=== PATIENT | male | born 1990 | race Caucasian/White ===

== ENCOUNTER 2018-10-19 21:17 | Emergency (ER) | payer OTHER, SELFPAY ==
[2018-10-19] MEDS ORDERED: NA CHLORIDE 0.9% 2,000 ML ONE (21:53)
[2018-10-19] MEDS ORDERED: IBUPROFEN 400 MG TAB ONE (22:05)
--- NOTE | 2018-10-19 22:23 | ER ---
Nurse's Notes [facility] Name: Rodger Watson Age: 28 yrs Sex: Male : 1990 Arrival Date: 10/19/2018 Time: 21:21 Bed 26 Private MD: Diagnosis: Influenza due to other identified influenza virus-influenza B;Streptococcal pharyngitis Presentation: 10/19 21:24 Presenting complaint: Patient states: fever, cough, sore throat since Sunday, taken la1 tylenol at 2000. Transition of care: patient was not received from another setting of care. Onset of symptoms was October 19, 2018. Risk Assessment: Do you want to hurt yourself or someone else? Patient reports no desire to harm self or others. Initial Sepsis Screen: Does the patient meet any 2 criteria? Temp <36.0*C (96.8*F)) or > 38.3*C (100.9*F). HR > 90 bpm. Yes Does the patient have a suspected source of infection? Yes: Productive cough/pneumonia. Care prior to arrival: None. 21:24 Method Of Arrival: Ambulatory la1 21:24 Acuity: KINZA 2 la1 Historical: - Allergies: 21:26 No Known Allergies; la1 - PMHx: 21:26 GERD; la1 - Immunization history:: Adult Immunizations up to date. - Social history:: Smoking status: Patient/guardian denies using tobacco. - Ebola Screening: : No symptoms or risks identified at this time. Screenin:58 Abuse screen: Denies threats or abuse. Denies injuries from another. Nutritional mg2 screening: No deficits noted. Tuberculosis screening: No symptoms or risk factors identified. Fall Risk None identified. Assessment: 21:56 General: Appears in no apparent distress. comfortable, Behavior is calm, cooperative. mg2 Pain: Complains of pain in throat Pain does not radiate. Pain currently is 4 out of 10 on a pain scale. Quality of pain is described as aching, Pain began gradually, 1 day ago. Is intermittent. Neuro: Level of Consciousness is awake, alert, obeys commands, Oriented to person, place, time, situation. Cardiovascular: Capillary refill < 3 seconds Patient's skin is warm and dry. Respiratory: Reports cough that is non-productive, nasal congestion Airway is patent Respiratory effort is even, unlabored, Respiratory pattern is regular, symmetrical. GI: No signs and/or symptoms were reported involving the gastrointestinal system. : No signs and/or symptoms were reported regarding the genitourinary system. EENT: Reports sore throat. Derm: Skin is intact, is healthy with good turgor, Skin is pink, warm \T\ dry. normal. Musculoskeletal: Circulation, motion, and sensation intact. Capillary refill < 3 seconds. Vital Signs: 21:25 BP 111 / 77; Pulse 115; Resp 18; Temp 101.7; Pulse Ox 100% on R/A; Weight 77.11 kg; la1 Height 5 ft. 10 in. (177.80 cm); Pain 7/10; 22:39 BP 110 / 70; Pulse 90; Resp 18; Temp 98.7(O); Pulse Ox 100% on R/A; Pain 0/10; mg2 21:25 Body Mass Index 24.39 (77.11 kg, 177.80 cm) la1 ED Course: 21:21 Patient arrived in ED. mr 21:25 Triage completed. la1 21:26 Arm band placed on left wrist. la1 21:27 Clarence Porter PA is PHCP. cp 21:27 Manny Gillespie MD is Attending Physician. cp 21:27 Edmund Murray, KYRA is Primary Nurse. mg2 21:39 Chest Single View XRAY In Process Unspecified. EDMS 21:58 Patient has correct armband on for positive identification. Door closed. mg2 21:58 No provider procedures requiring assistance completed. Patient did not have IV access mg2 during this emergency room visit. 22:22 XRAY Chest Pa And Lat (2 Views) In Process Unspecified. EDMS Administered Medications: 21:54 Drug: Ibuprofen 800 mg Route: PO; mg2 22:31 Follow up: Response: No adverse reaction; Temperature is decreased mg2 21:59 Not Given (Physician Discretion): NS 0.9% (30 ml/kg) 30 ml/kg IV at bolus once; Sepsis mg2 Protocol 22:31 Drug: Tamiflu 75 mg Route: PO; mg2 22:31 Follow up: Response: No adverse reaction; Medication administered at discharge. mg2 22:31 Drug: Augmentin 875 mg Route: PO; mg2 22:31 Follow up: Response: No adverse reaction; Medication administered at discharge. mg2 Outcome: 22:22 Discharge ordered by . cp 22:39 Patient left the ED. mg2 22:39 Discharged to home ambulatory. mg2 22:39 Condition: stable 22:39 Discharge instructions given to patient, Instructed on discharge instructions, follow mg2 up and referral plans. medication usage, Demonstrated understanding of instructions, follow-up care, medications, Prescriptions given X 3. Signatures: Dispatcher [employer] Surekha ChildsTu cochran RN RN la1 Clarence Porter PA PA cp Gardose, Michele, RN RN mg2 Corrections: (The following items were deleted from the chart) 21:26 21:25 BP 111 / 7; Pulse 115bpm; Resp 18bpm; Pulse Ox 100% RA; Temp 101.7F; 77.11 kg; la1 Height 5 ft. 10 in.; BMI: 24.3; Pain 7/10; la1
--- NOTE | 2018-10-19 22:23 | EDPHYS ---
Physician Documentation [facility] Name: Rodger Watson Age: 28 yrs Sex: Male : 1990 Arrival Date: 10/19/2018 Time: 21:21 Bed 26 Private MD: ED Physician Manny iGllespie HPI: 10/19 21:35 This 28 yrs old Male presents to ER via Ambulatory with complaints of Fever, cp Cough. 21:35 The patient reports fever, with an emergency department temperature of 101.7 degrees cp Fahrenheit. 21:35 Onset: The symptoms/episode began/occurred yesterday. Associated signs and symptoms: cp Pertinent positives: cough, sore throat, Pertinent negatives: diarrhea, earache, headache, skin rash, vomiting, neck stiffness. Severity of symptoms: in the emergency department the symptoms are unchanged despite home interventions. Historical: - Allergies: 21:26 No Known Allergies; la1 - PMHx: 21:26 GERD; la1 - Immunization history:: Adult Immunizations up to date. - Social history:: Smoking status: Patient/guardian denies using tobacco. - Ebola Screening: : No symptoms or risks identified at this time. ROS: 21:40 Constitutional: Positive for body aches, fever, Negative for poor PO intake. cp 21:40 Eyes: Negative for injury, pain, redness, and discharge. cp 21:40 ENT: Positive for sore throat, Negative for drainage from ear(s), ear pain, difficulty cp swallowing, difficulty handling secretions, hoarseness. 21:40 Neck: Negative for pain with movement, pain at rest, stiffness. 21:40 Cardiovascular: Negative for chest pain. 21:40 Respiratory: Positive for cough, Negative for shortness of breath, wheezing. 21:40 Abdomen/GI: Negative for abdominal pain, nausea, vomiting, and diarrhea. 21:40 Skin: Negative for rash. 21:40 Neuro: Negative for altered mental status, headache. 21:40 All other systems are negative. Exam: 21:45 Constitutional: The patient appears in no acute distress, alert, awake, non-toxic, well cp developed, well nourished, febrile. 21:45 Head/Face: Normocephalic, atraumatic. cp 21:45 Eyes: Periorbital structures: appear normal, Conjunctiva: normal, no exudate, no injection, Sclera: no appreciated abnormality, Lids and lashes: appear normal, bilaterally. 21:45 ENT: External ear(s): are unremarkable, Ear canal(s): are normal, clear, TM's: bulging, is not appreciated, bilaterally, dullness, bilaterally, erythema, is not appreciated, bilaterally, Nose: is normal, Mouth: Lips: moist, Oral mucosa: moist, Posterior pharynx: Airway: no evidence of obstruction, patent, Tonsils: bilaterally enlarged, with erythema, no exudate, Uvula: midline, erythema, that is moderate, exudate, is not appreciated, Voice: is normal. 21:45 Neck: ROM/movement: is normal, is supple, no meningismus, no nuchal rigidity. 21:45 Chest/axilla: Inspection: normal, Palpation: is normal, no crepitus, no tenderness. 21:45 Cardiovascular: Rate: tachycardic, Rhythm: regular. 21:45 Respiratory: the patient does not display signs of respiratory distress, Respirations: normal, no use of accessory muscles, no retractions, no splinting, no tachypnea, labored breathing, is not present, Breath sounds: are clear throughout, no decreased breath sounds, no stridor, no wheezing. 21:45 Abdomen/GI: Inspection: abdomen appears normal, Palpation: abdomen is soft and non-tender, in all quadrants. 21:45 Skin: no rash present. 21:45 Neuro: Orientation: to person, place \T\ time. Mentation: is normal, Cerebellar function: is grossly normal, Motor: moves all fours, strength is normal, Gait: is steady. Vital Signs: 21:25 BP 111 / 77; Pulse 115; Resp 18; Temp 101.7; Pulse Ox 100% on R/A; Weight 77.11 kg; la1 Height 5 ft. 10 in. (177.80 cm); Pain 7/10; 22:39 BP 110 / 70; Pulse 90; Resp 18; Temp 98.7(O); Pulse Ox 100% on R/A; Pain 0/10; mg2 21:25 Body Mass Index 24.39 (77.11 kg, 177.80 cm) la1 MDM: 21:27 Patient medically screened. cp 21:30 Differential diagnosis: URI, bronchitis, pneumonia gastroenteritis, meningitis. cp 21:45 ED course: VS noted. Will not draw blood work according to sepsis protocol as patient cp is otherwise healthy. 22:20 Data reviewed: vital signs, nurses notes, lab test result(s), radiologic studies, plain cp films, chest xray negative for focal infiltrates, and as a result, I will discharge patient. 22:20 Counseling: I had a detailed discussion with the patient and/or guardian regarding: the cp historical points, exam findings, and any diagnostic results supporting the discharge/admit diagnosis, lab results, radiology results, to return to the emergency department if symptoms worsen or persist or if there are any questions or concerns that arise at home. Response to treatment: the patient's symptoms have markedly improved after treatment. 10/19 21:28 Order name: Chest Single View XRAY mg2 10/19 21:45 Order name: Influenza Screen (a \T\ B); Complete Time: 22:17 cp 10/19 22:17 Interpretation: Normal except: FLUB FLU B ----- \T\nbsp; \T\nbsp; \T\nbsp; \T\nbsp; \T\nbsp; cp \T\nbsp; \T\nbsp; \T\nbsp; \T\nbsp; POSITIVE for FLU B protein antigen. 10/19 21:45 Order name: Strep; Complete Time: 22:17 cp 10/19 21:45 Order name: XRAY Chest Pa And Lat (2 Views) cp Administered Medications: 21:54 Drug: Ibuprofen 800 mg Route: PO; mg2 22:31 Follow up: Response: No adverse reaction; Temperature is decreased mg2 21:59 Not Given (Physician Discretion): NS 0.9% (30 ml/kg) 30 ml/kg IV at bolus once; Sepsis mg2 Protocol 22:31 Drug: Tamiflu 75 mg Route: PO; mg2 22:31 Follow up: Response: No adverse reaction; Medication administered at discharge. mg2 22:31 Drug: Augmentin 875 mg Route: PO; mg2 22:31 Follow up: Response: No adverse reaction; Medication administered at discharge. mg2 Disposition: 10/20 04:12 Co-signature as Attending Physician, Manny Gillespie MD I agree with the assessment and kdr plan of care. Disposition: 10/19/18 22:22 Discharged to Home. Impression: Influenza due to other identified influenza virus - influenza B, Streptococcal pharyngitis. - Condition is Stable. - Discharge Instructions: Influenza, Adult, Strep Throat. - Prescriptions for Amoxicillin 875 mg Oral Tablet - take 1 tablet by ORAL route every 12 hours for 10 days; 20 tablet. Ibuprofen 800 mg Oral Tablet - take 1 tablet by ORAL route every 8 hours As needed take with food; 30 tablet. Tamiflu 45 mg Oral Capsule - take 1 capsule by ORAL route every 12 hours for 5 days; 10 capsule. - Medication Reconciliation Form, Thank You Letter, Antibiotic Education, Prescription Opioid Use, Work release form form. - Follow up: Private Physician; When: 2 - 3 days; Reason: Worsening of condition. - Problem is new. - Symptoms have improved. Signatures: Dispatcher [employer] [facility] Manny Gillespie MD MD kdr Tu Mcginnis RN RN la1 Clarence Porter PA PA cp Gardose, Michele, RN RN mg2 Corrections: (The following items were deleted from the chart) 10/19 21:51 21:29 Basic Metabolic Panel ordered. [facility] 21:51 21:29 Blood Culture ordered. [facility] 21:51 21:29 CBC with Automated Diff ordered. [facility] 21:51 21:29 CKMB Creatine Kinase MB ordered. [facility] 21:51 21:30 Creatine Phosphokinase ordered. [facility] 21:51 21:30 Liver (Hepatic) Function ordered. [facility] 21:51 21:30 Lipase ordered. [facility] 21:51 21:30 Procalcitonin ordered. [facility] 21:51 21:30 Protime (+INR) ordered. [facility] 21:51 21:30 PTT, ACTIVATED+COAG.LAB.BRZ ordered. [facility] 21:51 21:30 TROPONIN (EMERG DEPT USE ONLY)+C.LAB.BRZ ordered. [facility] 21:51 21:30 UA MICROSCOPIC+U.LAB.BRZ ordered. [facility] 21:52 21:30 Lactate ordered. [facility] 21:59 21:28 Accucheck ordered. mg2 mg2 22:00 21:28 Cardiac monitoring ordered. mg2 mg2 22:00 21:28 EKG - Nurse/Tech ordered. mg2 mg2 22:00 21:28 IV Saline Lock - Large Bore ordered. mg2 mg2 22:00 21:28 Labs collected and sent ordered. mg2 mg2 22: 21:28 Oxygen Per Protocol ordered. mg2 mg2 22: 21:28 O2 Sat Monitoring ordered. mg2 mg2 22:08 21:28 Urine Dipstick-Ancillary ordered. mg2 cp 22:39 22:22 10/19/2018 22:22 Discharged to Home. Impression: Influenza due to other mg2 identified influenza virus - influenza B; Streptococcal pharyngitis. Condition is Stable. Forms are Medication Reconciliation Form, Thank You Letter, Antibiotic Education, Prescription Opioid Use. Follow up: Private Physician; When: 2 - 3 days; Reason: Worsening of condition. Problem is new. Symptoms have improved. cp
[2018-10-19] MEDS ORDERED: AMOX/K CLAV 875 MG TAB ONE (22:38)
[2018-10-19] MEDS ORDERED: OSELTAMIVIR 75 MG CAP ONE (22:38)
--- NOTE | 2018-10-20 07:47 | RAD REPORT ---
EXAM DESCRIPTION: RAD - Chest Single View - 10/19/2018 9:39 pm CLINICAL HISTORY: Cough, sepsis COMPARISON: June 2014 TECHNIQUE: AP portable chest image was obtained 2134 hours . FINDINGS: Lungs are clear. Heart and vasculature are normal. No measurable pleural effusion and no p neumothorax. No acute bony abnormality seen. No acute aortic findings suspected. IMPRESSION: No acute cardiopulmonary process.
--- NOTE | 2018-10-20 07:51 | RAD REPORT ---
EXAM DESCRIPTION: RAD - Chest Pa And Lat (2 Views) - 10/19/2018 10:21 pm CLINICAL HISTORY: Cough, fever COMPARISON: Portable chest same date TECHNIQUE: PA and lateral views of the chest were obtained. FINDINGS: The lungs are clear. Heart size is normal and central vasculature is within normal limit s. No pleural effusion or pneumothorax seen. No acute bony finding noted. No aortic abnormality. IMPRESSION: No acute cardiopulmonary process. No new finding.
== END 2018-10-19 22:39 | disposition home or self-care (01) ==
LOC: ER 21:17
DX: J10.1 Influenza due to other identified influenza virus with other respiratory manifestations (principal); J02.0 Streptococcal pharyngitis
CPT/HCPCS: 71045; 71046; 87081; 87804; 99283; J7030

== ENCOUNTER 2019-06-07 01:23 | Emergency (ER) | payer OTHER ==
--- OUTSIDE RECORDS SUMMARY | 2019-06-07 01:25 | XMS REPORT ---
:1990 [facility] Address [address] [place] [address] Dr. Martinez [address] [place] [id number] Care Team Providers Name Role Phone Unavailable Unavailable Unavailable Problems This patient has no known problems. Allergies, Adverse Reactions, Alerts This patient has no known allergies or adverse reactions. Medications This patient has no known medications.
--- NOTE | 2019-06-07 02:54 | EDPHYS ---
Physician Documentation [facility] Name: Rodger Watson Age: 29 yrs Sex: Male : 1990 Arrival Date: 06/07/2019 Time: 01:26 Bed 13 Private MD: Heidy Chris R ED Physician Mark Mcgregor HPI: 06/07 01:58 This 29 yrs old Male presents to ER via Unassigned with complaints of Cough, snw Sore Throat, Headache, Diarrhea, Dizziness. 01:58 The patient or guardian reports flu symptoms, low-grade fever, myalgias, no appetite. snw Onset: The symptoms/episode began/occurred suddenly, today. Severity of symptoms: At their worst the symptoms were moderate. Associated signs and symptoms: Pertinent positives: diarrhea, rhinorrhea, sore throat. The patient has experienced similar episodes in the past. It is unknown whether or not the patient has recently seen a physician. Pt is a teacher. Historical: - Allergies: 02:28 No Known Allergies; - Home Meds: 02:28 None [Active]; - PMHx: 02:28 GERD; - PSHx: 02:28 None; - Immunization history:: Adult Immunizations not up to date. - Social history:: Smoking status: Patient/guardian denies using tobacco. - Ebola Screening: : Patient negative for fever greater than or equal to 101.5 degrees Fahrenheit, and additional compatible Ebola Virus Disease symptoms Patient denies exposure to infectious person. ROS: 01:57 Eyes: Negative for injury, pain, redness, and discharge. snw 01:57 Neck: Negative for injury, pain, and swelling, Cardiovascular: Negative for chest pain, palpitations, and edema, Respiratory: Negative for shortness of breath, cough, wheezing, and pleuritic chest pain. 01:57 Back: Negative for injury and pain, : Negative for injury, bleeding, discharge, and swelling, MS/Extremity: Negative for injury and deformity, Skin: Negative for injury, rash, and discoloration, Neuro: Negative for headache, weakness, numbness, tingling, and seizure. 01:57 Constitutional: Positive for body aches, fatigue, malaise, poor PO intake. 01:57 ENT: Positive for sinus congestion, sore throat. 01:57 Abdomen/GI: Positive for diarrhea. Exam: 01:56 Head/Face: Normocephalic, atraumatic. Eyes: Pupils equal round and reactive to light, snw extra-ocular motions intact. Lids and lashes normal. Conjunctiva and sclera are non-icteric and not injected. Cornea within normal limits. Periorbital areas with no swelling, redness, or edema. 01:56 Neck: Trachea midline, no thyromegaly or masses palpated, and no cervical lymphadenopathy. Supple, full range of motion without nuchal rigidity, or vertebral point tenderness. No Meningismus. Chest/axilla: Normal chest wall appearance and motion. Nontender with no deformity. No lesions are appreciated. Cardiovascular: Regular rate and rhythm with a normal S1 and S2. No gallops, murmurs, or rubs. Normal PMI, no JVD. No pulse deficits. Respiratory: Lungs have equal breath sounds bilaterally, clear to auscultation and percussion. No rales, rhonchi or wheezes noted. No increased work of breathing, no retractions or nasal flaring. Abdomen/GI: Soft, non-tender, with normal bowel sounds. No distension or tympany. No guarding or rebound. No evidence of tenderness throughout. Back: No spinal tenderness. No costovertebral tenderness. Full range of motion. Skin: Warm, dry with normal turgor. Normal color with no rashes, no lesions, and no evidence of cellulitis. MS/ Extremity: Pulses equal, no cyanosis. Neurovascular intact. Full, normal range of motion. Neuro: Awake and alert, GCS 15, oriented to person, place, time, and situation. Cranial nerves II-XII grossly intact. Motor strength 5/5 in all extremities. Sensory grossly intact. Cerebellar exam normal. Normal gait. Psych: Awake, alert, with orientation to person, place and time. Behavior, mood, and affect are within normal limits. 01:56 Constitutional: The patient appears alert, awake, uncomfortable. 01:56 ENT: TM's: are normal, Nose: Nasal mucosa: edematous, Posterior pharynx: swelling, that is mild, erythema, that is mild, Voice: is normal. Vital Signs: 01:40 BP 124 / 91; Pulse 70; Resp 18; Temp 98.2; Pulse Ox 100% ; Weight 86.18 kg; Height 5 wh ft. 6 in. (167.64 cm); Pain 0/10; 02:24 BP 120 / 90; Pulse 75; Resp 18; Pulse Ox 100% on R/A; wh 03:22 BP 123 / 83; Pulse 85; Resp 18; Pulse Ox 100% ; wh 01:40 Body Mass Index 30.67 (86.18 kg, 167.64 cm) wh MDM: 01:39 Patient medically screened. snw 02:53 Data reviewed: vital signs, nurses notes. Data interpreted: Pulse oximetry: on room air snw is 100 %. Interpretation: normal. Counseling: I had a detailed discussion with the patient and/or guardian regarding: the historical points, exam findings, and any diagnostic results supporting the discharge/admit diagnosis, lab results, the need for outpatient follow up, to return to the emergency department if symptoms worsen or persist or if there are any questions or concerns that arise at home. Special discussion: Based on the history and exam findings, there is no indication for further emergent testing or inpatient evaluation. I discussed with the patient/guardian the need to see the primary care provider for further evaluation of the symptoms. 06/07 01:33 Order name: Flu; Complete Time: 02:51 snw 06/07 01:33 Order name: Strep; Complete Time: 02:51 snw 06/07 02:50 Order name: Throat Culture EDMS Administered Medications: 03:05 Drug: Bicillin L-A 1.2 million units Route: IM; Site: right gluteus; 03:23 Follow up: Response: No adverse reaction Disposition: 06:02 Co-signature as Attending Physician, Mark Mcgregor MD I agree with the assessment and tw4 plan of care. Disposition: 06/07/19 02:53 Discharged to Home. Impression: Streptococcal pharyngitis. - Condition is Stable. - Discharge Instructions: Fever, Adult, Strep Throat, Rehydration, Adult. - Prescriptions for promethazine 25 mg Oral Tablet - take 1 tablet by ORAL route every 6 hours As needed; 20 tablet. - Medication Reconciliation Form, Thank You Letter, Antibiotic Education, Prescription Opioid Use form. - Follow up: Emergency Department; When: As needed; Reason: Worsening of condition. Follow up: Heidy Chris MD; When: 2 - 3 days; Reason: Recheck today's complaints, Continuance of care, Re-evaluation by your physician. Signatures: Dispatcher [employer] Lanny Conroy, LUIS A [employer] MAT[employer] TECHNICIAN-Kayli Joyce Terrence, MD MD tw4 Corrections: (The following items were deleted from the chart) 03:23 02:53 06/07/2019 02:53 Discharged to Home. Impression: Streptococcal pharyngitis. Condition is Stable. Forms are Medication Reconciliation Form, Thank You Letter, Antibiotic Education, Prescription Opioid Use. Follow up: Emergency Department; When: As needed; Reason: Worsening of condition. Follow up: Heidy Chris; When: 2 - 3 days; Reason: Recheck today's complaints, Continuance of care, Re-evaluation by your physician. snw
--- NOTE | 2019-06-07 02:54 | ER ---
Nurse's Notes [facility] Name: Rodger Watson Age: 29 yrs Sex: Male : 1990 Arrival Date: 06/07/2019 Time: 01:26 Bed 13 Private MD: Heidy Chris R Diagnosis: Streptococcal pharyngitis Presentation: 06/07 01:35 Presenting complaint: Patient states: C/O sore throat and body aches that started wh yesterday. States he had flu last July and had the same symptoms. Transition of care: patient was not received from another setting of care. Onset of symptoms was June 06, 2019. Risk Assessment: Do you want to hurt yourself or someone else? Patient reports no desire to harm self or others. Initial Sepsis Screen: Does the patient meet any 2 criteria? No. Patient's initial sepsis screen is negative. Does the patient have a suspected source of infection? No. Patient's initial sepsis screen is negative. Care prior to arrival: None. 01:35 Method Of Arrival: Ambulatory 01:35 Acuity: KINZA 4 Historical: - Allergies: 02:28 No Known Allergies; - Home Meds: 02:28 None [Active]; - PMHx: 02:28 GERD; - PSHx: 02:28 None; - Immunization history:: Adult Immunizations not up to date. - Social history:: Smoking status: Patient/guardian denies using tobacco. - Ebola Screening: : Patient negative for fever greater than or equal to 101.5 degrees Fahrenheit, and additional compatible Ebola Virus Disease symptoms Patient denies exposure to infectious person. Screenin:35 Abuse screen: Denies threats or abuse. Denies injuries from another. Nutritional screening: No deficits noted. Tuberculosis screening: No symptoms or risk factors identified. Fall Risk None identified. Assessment: 01:35 General: Appears in no apparent distress. Behavior is calm, cooperative, appropriate wh for age. Pain: Complains of pain in sore throat. Neuro: Level of Consciousness is awake, alert, obeys commands, Oriented to person, place, time, situation, Appropriate for age. Cardiovascular: Heart tones S1 S2. Respiratory: Airway is patent Respiratory effort is even, unlabored, Respiratory pattern is regular, symmetrical, Breath sounds are clear bilaterally. GI: Abdomen is flat, non-distended. : No signs and/or symptoms were reported regarding the genitourinary system. EENT: Throat is pink. Derm: Skin is intact, is healthy with good turgor, Skin is pink, warm \T\ dry. normal. Musculoskeletal: Circulation, motion, and sensation intact. 02:24 Reassessment: Patient appears in no apparent distress at this time. No changes from previously documented assessment. Patient and/or family updated on plan of care and expected duration. Pain level reassessed. Patient is alert, oriented x 3, equal unlabored respirations, skin warm/dry/pink. 03:22 Reassessment: Patient appears in no apparent distress at this time. No changes from previously documented assessment. Patient and/or family updated on plan of care and expected duration. Pain level reassessed. Patient is alert, oriented x 3, equal unlabored respirations, skin warm/dry/pink. Vital Signs: 01:40 BP 124 / 91; Pulse 70; Resp 18; Temp 98.2; Pulse Ox 100% ; Weight 86.18 kg; Height 5 wh ft. 6 in. (167.64 cm); Pain 0/10; 02:24 BP 120 / 90; Pulse 75; Resp 18; Pulse Ox 100% on R/A; wh 03:22 BP 123 / 83; Pulse 85; Resp 18; Pulse Ox 100% ; wh 01:40 Body Mass Index 30.67 (86.18 kg, 167.64 cm) ED Course: 01:26 Patient arrived in ED. es 01:27 Heidy Chris MD is Private Physician. es 01:32 [facility] snw 01:32 Mark Mcgregor MD is Attending Physician. snw 01:35 Arm band placed on right wrist. wh 01:35 Patient has correct armband on for positive identification. Bed in low position. Call light in reach. Side rails up X 1. Pulse ox on. NIBP on. 01:44 Kayli Burris is Primary Nurse. wh 02:27 Triage completed. wh 02:52 Heidy Chris MD is Referral Physician. snw 03:22 No provider procedures requiring assistance completed. Patient did not have IV access during this emergency room visit. Administered Medications: 03:05 Drug: Bicillin L-A 1.2 million units Route: IM; Site: right gluteus; 03:23 Follow up: Response: No adverse reaction Outcome: 02:53 Discharge ordered by . taylor 03:23 Discharged to home ambulatory. 03:23 Condition: stable 03:23 Discharge instructions given to patient, Instructed on discharge instructions, follow up and referral plans. medication usage, POC Strep Demonstrated understanding of instructions, follow-up care, medications, POC Prescriptions given X 1. 03:23 Patient left the ED. Signatures: Lanny Fontanez, PLAY WRITER-C PLAY WRITER-Csnw Danii Baptiste Winsy
[2019-06-07] MEDS ORDERED: PEN G BENZ LA 1.2MU/2ML SYRINGE IM ONE (03:01)
[2019-06-07 03:39] VITALS: TEMP 98.2; O2SAT 100
[2019-06-07 03:42] VITALS: BP 123/83
== END 2019-06-07 03:23 | disposition home or self-care (01) ==
LOC: ER 01:23
DX: J02.0 Streptococcal pharyngitis (principal)
CPT/HCPCS: 87070; 87081; 87804 ×2; 96372; 99283; J0561